=== PATIENT | male | born 1950 | race Two or more races ===

== ENCOUNTER → 2019-04-16 | Outpatient (CLI) | payer BC, MEDICAID ==
[~2019-04-16] MED LIST: ASPI81TA39 PO; HYDR25TA84 PO; INSLAN SQ; INSU100V SQ; ISOS30TA6 PO; LISI-662 PO; METO100XL PO; NITR0.4T52 SL; PRAV10TA39 PO
== END | disposition home or self-care (01) ==
LOC: RADPV 14:14
PROVIDERS: ATTEND Hospitalist
DX: I65.22 Occlusion and stenosis of left carotid artery (principal)
CPT/HCPCS: 93880